=== PATIENT | male | born 1990 | race African-American/Black ===

== ENCOUNTER 2023-12-06 14:53 | Emergency (ER) | payer SELFPAY ==
[2023-12-06 15:04] VITALS: TEMP 98.4; BMI 18.2
[2023-12-06] MEDS ORDERED: MAG HYDROX/AL HYDROX/SIMETH 30 ML UNIT-DOSE CUP ONE (15:48)
[2023-12-06] MEDS ORDERED: FAMOTIDINE 20 MG TABLET ONE (15:48)
[2023-12-06 15:51] LABS: BASO % 0.6 % (0-2.0); HEMATOCRIT 41.8 % (35.4-49); HEMOGLOBIN 13.1 GM/dL (11.7-16.9); MCH 23.4 pg (25.7-33.7); MCHC 31.4 g/dl (32.0-35.9); MEAN CELL VOLUME 74.7 fl (80-96); MEAN PLT VOLUME 8.7 fl (7.5-11.1); MONO % 9.7 % (3.8-10.2); NEUT % 77.7 % (42.8-82.8); PLATELET COUNT 268 10^3/uL (134-434); RDW 14.1 % (11.9-15.9); WHITE BLOOD COUNT 12.4 K/mm3 (4.0-10.0)
[2023-12-06 15:52] LABS: PH,URINE 6.5 (5.0-8.0); URINE APPEARANCE CLEAR; URINE BILIRUBIN NEGATIVE (NEGATIVE); URINE COLOR YELLOW; URINE GLUCOSE (UA) NEGATIVE (NEGATIVE); URINE KETONE NEGATIVE (NEGATIVE); URINE LEUK ESTERASE NEGATIVE (NEGATIVE); URINE NITRITE NEGATIVE (NEGATIVE); URINE PROTEIN NEGATIVE (NEGATIVE); URINE UROBILINOGEN 0.2 mg/dL (0.2-1.0)
[2023-12-06] MEDS: FAMOTIDINE 20 MG TABLET PO ONE (15:52)
[2023-12-06] MEDS: MAG HYDROX/AL HYDROX/SIMETH 30 ML UNIT-DOSE CUP PO ONE (15:52)
[2023-12-06 16:10] LABS: POTASSIUM 4.1 mmol/L (3.5-5.1)
[2023-12-06 16:12] LABS: CALCIUM 10.2 mg/dL (8.5-10.1)
[2023-12-06 16:13] LABS: ALBUMIN 4.4 g/dl (3.4-5.0); BLOOD UREA NITROGEN 11.6 mg/dL (7-18); MAGNESIUM 2.3 mg/dL (1.8-2.4)
[2023-12-06 16:16] LABS: CREATININE 1.4 mg/dL (0.55-1.3)
[2023-12-06 16:17] LABS: BILIRUBIN,TOTAL 0.8 mg/dL (0.2-1); TOT PROT 7.8 g/dl (6.4-8.2)
[2023-12-06 17:06] LABS: HIV INTERPRETATION NEGATIVE (NEGATIVE)
[2023-12-06] MEDS: SODIUM CHLORIDE 0.9% 500 ML INFUS.BAG IV ONE (17:08)
[2023-12-06 18:32] LABS: BLOOD UREA NITROGEN 10.6 mg/dL (7-18); CALCIUM 9.1 mg/dL (8.5-10.1)
[2023-12-06 18:36] LABS: CREATININE 1.3 mg/dL (0.55-1.3)
[2023-12-06 18:57] VITALS: BP 125/64; PULSE 62; RESP 18
== END 2023-12-06 18:57 | disposition home or self-care (01) ==
LOC: JER 14:53
DX: N17.9 Acute kidney failure, unspecified (principal); M54.6 Pain in thoracic spine; R10.9 Unspecified abdominal pain; R19.7 Diarrhea, unspecified; R68.83 Chills (without fever)
CPT/HCPCS: 36415; 80048; 80053; 81003; 83690; 83735; 85025; 86803; 87086; 87389; 99284-25